=== PATIENT | female | born 1970 ===

== ENCOUNTER 2020-10-11 07:23 | Day surgery (SDC) | payer OTHER ==
[~2020-10-11] VITALS: Ht 154.9 cm; Wt 104.3 kg
[~2020-10-11 07:23] MED LIST: DICY20TA PO; PRILOSEC OTC20 MG PO; SYNTHROID75 MCG PO
== END 2020-10-11 19:55 | disposition home or self-care (01) ==
LOC: CIR.AMB 07:23
PROVIDERS: ATTEND Specialist
DX: N85.01 Benign endometrial hyperplasia (principal); Z20.822 Contact with and (suspected) exposure to COVID-19

== ENCOUNTER 2021-03-05 12:45 | Inpatient (IN) | payer OTHER ==
[~2021-03-05] VITALS: Ht 152.4 cm; Wt 56.7 kg
[2021-03-06] MEDS ORDERED: RESTORIL30 M1 PO (09:19)
[2021-03-07] MEDS ORDERED: CLORAZEPATE D3.75 MG (15:06)
[2021-03-07] MEDS ORDERED: DICLOFENAC SOD100 MG (15:06)
[2021-03-07] MEDS ORDERED: METHOTREXATE2.5 MG (15:07)
[2021-03-07] MEDS ORDERED: NORFLEX100MG (15:07)
[2021-03-07] MEDS ORDERED: WAL-DRYL25 MG (15:07)
[2021-03-07] MEDS ORDERED: PROGESTERONE100 M1 (15:07)
[2021-03-07] MEDS ORDERED: VITAMIN D31250 MCG (15:07)
== END 2021-03-09 14:50 | disposition home or self-care (01) | DRG 743 ==
LOC: SURG-SUITE 03-07 07:30 → O/R 03-07 07:30 → SURH 03-07 10:15 → SURG-SUITE 03-07 13:46
PROVIDERS: ADMIT Specialist; ATTEND Specialist
PROC: 0UT24ZZ Resection of Bilateral Ovaries, Percutaneous Endoscopic Approach (ICD-10-PCS; 2021-03-07)
PROC: 0UT74ZZ Resection of Bilateral Fallopian Tubes, Percutaneous Endoscopic Approach (ICD-10-PCS; 2021-03-07)
PROC: 07BC4ZZ Excision of Pelvis Lymphatic, Percutaneous Endoscopic Approach (ICD-10-PCS; 2021-03-07)
PROC: 0DNU4ZZ Release Omentum, Percutaneous Endoscopic Approach (ICD-10-PCS; 2021-03-07)
PROC: 0DNN4ZZ Release Sigmoid Colon, Percutaneous Endoscopic Approach (ICD-10-PCS; 2021-03-07)
PROC: 0UT94ZZ Resection of Uterus, Percutaneous Endoscopic Approach (ICD-10-PCS; principal; 2021-03-07 10:15)
DX: N85.02 Endometrial intraepithelial neoplasia [EIN] (principal); D25.1 Intramural leiomyoma of uterus; N73.6 Female pelvic peritoneal adhesions (postinfective); N99.4 Postprocedural pelvic peritoneal adhesions; N83.02 Follicular cyst of left ovary; N83.01 Follicular cyst of right ovary